=== PATIENT | female | born 1995 | race Caucasian/White ===

== ENCOUNTER 2019-10-10 13:57 | Emergency (ER) | payer OTHER ==
[2019-10-10 14:25] VITALS: TEMP 98; BMI 41.3
[2019-10-10] MEDS ORDERED: ONDANSETRON 4 MG/2 ML VIAL IVPUSH ONE (14:26)
[2019-10-10] MEDS ORDERED: SODIUM CHLORIDE 1,000 ML IV STA (14:26)
--- NOTE | 2019-10-10 14:26 | PDOC ---
Rapid Medical Evaluation Medical Evaluation: I have performed a brief in-person evaluation of this patient. The patient presents with a chief complaint of: epigastric pain, NBNB emesis, watery diarrhea x 6 days; denies fever, recent travel Pertinent physical exam findings: In NAD, abdomen soft/NT I have ordered the following: Labs, IVF, zofran The patient will proceed to the ED for further evaluation. 10/10/19 14:23
[2019-10-10 15:57] LABS: BASO % 0.2 % (0-2.0); EOS % 6.2 % (0-4.5); HEMATOCRIT 44.8 % (32.4-45.2); HEMOGLOBIN 14.3 GM/dL (10.7-15.3); LYMPH % 28.2 % (8-40); MCHC 31.9 g/dl (32.0-36.0); MEAN CELL VOLUME 78.5 fl (80-96); MEAN PLT VOLUME 9.1 fl (7.5-11.1); MONO % 12.7 % (3.8-10.2); NEUT % 52.7 % (42.8-82.8); PLATELET COUNT 423 K/MM3 (134-434); RDW 14.6 % (11.6-15.6); WHITE BLOOD COUNT 10.8 K/mm3 (4.0-10.0)
[2019-10-10 16:15] LABS: ALBUMIN 3.6 g/dl (3.4-5.0); BILIRUBIN,TOTAL 0.2 mg/dL (0.2-1); BLOOD UREA NITROGEN 9.7 mg/dL (7-18); CALCIUM 9.3 mg/dL (8.5-10.1); CREATININE 0.8 mg/dL (0.55-1.3); POTASSIUM 3.6 mmol/L (3.5-5.1); TOT PROT 7.2 g/dl (6.4-8.2)
--- NOTE | 2019-10-10 17:03 | PDOC ---
History of Present Illness - General Chief Complaint: Pain Stated Complaint: ABD PAIN/VOMITING/DIARRHEA Time Seen by Provider: 10/10/19 14:23 - History of Present Illness Initial Comments: Magy Hinojosa is a 24 y/o female with PMH of PCOS presenting with feeling unwell and diarrhea non bloody on Thursday, nausea and vomiting on Thursday, and epigastric abdominal pain radiating to the back starting on Thursday. Reports that the pain is intermittent and describes it as squeezing like in sensation. Never had this before. Reports associated sulfur burps. Denies fever/chills. Denies recent travel. Reports generalized muscle aches. Never had these symptoms before. Denies chest pain/shortness of breath. Denies headache. Denies dysuria/hematuria. SocHx: minimal ETOH use Past History - Past Medical History Allergies/Adverse Reactions: Allergies Allergy/AdvReac Type Severity Reaction Status Date / Time No Known Allergies Allergy Verified 10/10/19 14:25 Home Medications: Ambulatory Orders NK [No Known Home Medication] 10/10/19 COPD: No Other medical history: PCOS - Psycho Social/Smoking Cessation Hx Smoking History: Never smoked Review of Systems - Review of Systems Comments:: GENERAL/CONSTITUTIONAL: No fever or chills. No weakness._ HEAD, EYES, EARS, NOSE AND THROAT: No change in vision. No change in hearing. No sore throat._ CARDIOVASCULAR: No chest pain or shortness of breath_ RESPIRATORY: Denies cough, hemoptysis_ GASTROINTESTINAL: Reports epigastric abdominal pain, diarrhea, nausea, vomiting. GENITOURINARY: No dysuria, frequency, or change in urination._ MUSCULOSKELETAL: Reports diffuse muscle aches. No neck or back pain. SKIN: No rash_ NEUROLOGIC: No headache, vertigo, loss of consciousness, or change in strength/ sensation._ ENDOCRINE: No increased thirst. No abnormal weight change_ HEMATOLOGIC/LYMPHATIC: No anemia, easy bleeding, or history of blood clots._ ALLERGIC/IMMUNOLOGIC: No hives or skin allergy._ *Physical Exam - Vital Signs Last Vital Signs Temp Pulse Resp BP Pulse Ox 98 F 110 H 18 140/91 98 10/10/19 14:22 10/10/19 14:22 10/10/19 14:22 10/10/19 14:22 02/24/20 14:22 - Physical Exam GENERAL: Awake, alert, and oriented to person/place/time, in no acute distress_ HEAD: No signs of trauma, normocephalic, atraumatic _ EYES: PERRLA, EOMI, sclera anicteric, conjunctiva clear_ ENT: Hearing grossly normal, nares patent, oropharynx clear without exudates. No uvular deviation. Moist mucosa_ NECK: Normal ROM, supple, no lymphadenopathy, JVD, or masses_ LUNGS: No distress, speaks in full sentences, clear to auscultation bilaterally _ HEART: Regular rate and rhythm, normal S1 and S2, no murmurs appreciated, peripheral pulses normal and equal bilaterally._ ABDOMEN: Obese, soft, minimal epigastric TTP, normoactive bowel sounds. No guarding, no rebound. No masses_ EXTREMITIES: Normal inspection, Normal range of motion, no edema. No clubbing or cyanosis_ NEUROLOGICAL: Cranial nerves II through XII grossly intact. Normal speech, normal gait, no focal sensorimotor deficits _ SKIN: Warm, Dry, normal turgor, no rashes or lesions noted_ RECTAL: External exam shows 1 external hemorrhoid right lateral, tender. The hemorrhoid is normal skin color. No other hemorrhoids palpated on rectal exam. Strong rectal tone. ED Treatment Course - LABORATORY CBC & Chemistry Diagram: 10/10/19 15:15 10/10/19 15:15 - ADDITIONAL ORDERS Additional order review: Laboratory Results 10/10/19 15:15 Sodium 139 Potassium 3.6 Chloride 104 Carbon Dioxide 27 Anion Gap 8 BUN 9.7 Creatinine 0.8 Est GFR (CKD-EPI)AfAm 121.29 Est GFR (CKD-EPI)NonAf 104.65 Random Glucose 93 Calcium 9.3 Magnesium 2.0 Total Bilirubin 0.2 AST 6 L ALT 21 Alkaline Phosphatase 81 Total Protein 7.2 Albumin 3.6 10/10/19 15:15 RBC 5.70 H MCV 78.5 L MCHC 31.9 L RDW 14.6 MPV 9.1 Neutrophils % 52.7 Lymphocytes % 28.2 Monocytes % 12.7 H Eosinophils % 6.2 H Basophils % 0.2 Medical Decision Making - Medical Decision Making 10/10/19 17:37 24F hx of PCOS presenting with nausea/vomiting, diarrhea, epigastric abdominal pain radiating to the back. -cbc, cmp, lipase -ua, ucx, upreg -fluids, pepcid, maalox 10/10/19 18:41 Labs reviewed. Laboratory Last Values WBC 10.8 K/mm3 (4.0-10.0) H 10/10/19 15:15 RBC 5.70 M/mm3 (3.60-5.2) H 10/10/19 15:15 Hgb 14.3 GM/dL (10.7-15.3) 10/10/19 15:15 Hct 44.8 % (32.4-45.2) 10/10/19 15:15 MCV 78.5 fl (80-96) L 10/10/19 15:15 MCH 25.0 pg (25.7-33.7) L 10/10/19 15:15 MCHC 31.9 g/dl (32.0-36.0) L 10/10/19 15:15 RDW 14.6 % (11.6-15.6) 10/10/19 15:15 Plt Count 423 K/MM3 (134-434) 10/10/19 15:15 MPV 9.1 fl (7.5-11.1) 10/10/19 15:15 Absolute Neuts (auto) 5.7 K/mm3 (1.5-8.0) 10/10/19 15:15 Neutrophils % 52.7 % (42.8-82.8) 10/10/19 15:15 Lymphocytes % 28.2 % (8-40) 10/10/19 15:15 Monocytes % 12.7 % (3.8-10.2) H 10/10/19 15:15 Eosinophils % 6.2 % (0-4.5) H 10/10/19 15:15 Basophils % 0.2 % (0-2.0) 10/10/19 15:15 Nucleated RBC % 0 % (0-0) 10/10/19 15:15 Sodium 139 mmol/L (136-145) 10/10/19 15:15 Potassium 3.6 mmol/L (3.5-5.1) 10/10/19 15:15 Chloride 104 mmol/L (98-107) 10/10/19 15:15 Carbon Dioxide 27 mmol/L (21-32) 10/10/19 15:15 Anion Gap 8 MMOL/L (8-16) 10/10/19 15:15 BUN 9.7 mg/dL (7-18) 10/10/19 15:15 Creatinine 0.8 mg/dL (0.55-1.3) 10/10/19 15:15 Est GFR (CKD-EPI)AfAm 121.29 10/10/19 15:15 Est GFR (CKD-EPI)NonAf 104.65 10/10/19 15:15 Random Glucose 93 mg/dL (74-106) 10/10/19 15:15 Calcium 9.3 mg/dL (8.5-10.1) 10/10/19 15:15 Magnesium 2.0 mg/dL (1.8-2.4) 10/10/19 15:15 Total Bilirubin 0.2 mg/dL (0.2-1) 10/10/19 15:15 AST 6 U/L (15-37) L 10/10/19 15:15 ALT 21 U/L (13-61) 10/10/19 15:15 Alkaline Phosphatase 81 U/L (45-117) 10/10/19 15:15 Total Protein 7.2 g/dl (6.4-8.2) 10/10/19 15:15 Albumin 3.6 g/dl (3.4-5.0) 10/10/19 15:15 Lipase 88 U/L (73-393) 10/10/19 17:00 Serum , Qual Negative 10/10/19 15:13 10/10/19 19:04 Pt reassessed. Reports improvement with meds. Plan to d/c home with PCP f/u and over the counter pepcid. All questions answered. Return precautions given. Pt verbalized understanding and agreement with plan. Discharge - Discharge Information Problems reviewed: Yes Clinical Impression/Diagnosis: Epigastric abdominal pain, External hemorrhoid Nausea and vomiting Qualifiers: Vomiting type: unspecified Condition: Stable Disposition: HOME - Admission No - Follow up/Referral Referrals: Laverne Marinelli MD [Primary Care Provider] - - Patient Discharge Instructions Patient Printed Discharge Instructions: DI for Vomiting -- Adult, DI for Hemorrhoids Additional Instructions: Please take zofran as needed for any nausea and vomiting. Please take Prilosec as needed for your abdominal pain and burping (available over the counter.) Please make a follow up appointment with your primary care doctor. If you experience any new, worsening, or concerning symptoms, including fever, blood in the vomit or stool, worsening abdominal pain, or any other concerns, please return to the emergency department. - Post Discharge Activity
[2019-10-10] MEDS ORDERED: MAG HYDROX/AL HYDROX/SIMETH -MYLANTA- ORAL SUSPENSION PO ONE (17:20)
[2019-10-10] MEDS ORDERED: FAMOTIDINE 20 MG/50 ML IVPB 20 MG/50 ML MG IVPB ONE ×2 (17:20→18:37)
[2019-10-10] MEDS ORDERED: LIDOCAINE VISCOUS 2% ORAL/TOP 20 ML UNIT-DOSE CUP MM ONE (17:21)
[2019-10-10] MEDS ORDERED: MAG HYDROX/AL HYDROX/SIMETH 30 ML UNIT-DOSE CUP ONE (18:36)
[2019-10-10] MEDS ORDERED: LIDOCAINE VISCOUS 2% ORAL/TOP 20 ML UNIT-DOSE CUP ONE (18:36)
[2019-10-10] MEDS ORDERED: ONDANSETRON 4 MG/2 ML VIAL ONE (18:37)
--- NOTE | 2019-10-10 18:43 | PDOC ---
Documentation entered by Hilda Graham SCRIBE, acting as scribe for Peggy Junior MD. Peggy Junior MD: This documentation has been prepared by the scribe, Hilda Graham SCRIBE, under my direction and personally reviewed by me in its entirety. I confirm that the documentation accurately reflects all work, treatment, procedures, and medical decision making performed by me. Attending Attestation - Resident Resident Name: Rodri Leung - ED Attending Attestation I have performed the following: I have examined & evaluated the patient, The case was reviewed & discussed with the resident, I agree w/resident's findings & plan, Exceptions are as noted - HPI HPI: 10/10/19 17:36 The patient is a 24-year-old female with a past medical history significant for PCOS who presents to the emergency department with nausea, vomiting, and abdominal pain. The patient reports on Thursday she had an onset of nausea and vomiting, which progressed into intermittent, squeezing epigastric pain and diarrhea and Thursday. Denies any prior abdominal surgery. - Physicial Exam PE: 10/10/19 18:16 GENERAL: Well-appearing, well-nourished. No apparent distress. HEENT: Normocephalic, atraumatic. PERRL, EOM intact. CARDIOVASCULAR: Regular rate and rhythm. PULMONARY: Clear to auscultation bilaterally. ABDOMEN: +epigastric pain, no rebound or guarding. Protuberant abdomen. EXTREMITIES: Normal ROM in all four extremities. No gross deformities. SKIN: Warm, dry. No rash NEUROLOGICAL: No focal neurological deficits. - Medical Decision Making 10/10/19 18:43 Negative test CBC unremarkable chemistries within normal limits Will reassess her abdominal pain 10/10/19 20:48 Abdominal pain resolved Patient also mentions that she has had some rectal pain and has small hemorrhoid that was addressed Discharge home with PPI,zofran, sitz bath 10/10/19 20:49
[2019-10-10 19:40] VITALS: BP 106/64; PULSE 71
== END 2019-10-10 21:12 | disposition home or self-care (01) ==
LOC: JER 13:57
PROC: 3E033GC Introduction of Other Therapeutic Substance into Peripheral Vein, Percutaneous Approach (ICD-10-PCS; principal; 2019-10-10)
PROC: 3E033GC Introduction of Other Therapeutic Substance into Peripheral Vein, Percutaneous Approach (ICD-10-PCS; 2019-10-10)
DX: R11.2 Nausea with vomiting, unspecified (principal); R19.7 Diarrhea, unspecified; R10.13 Epigastric pain; K64.4 Residual hemorrhoidal skin tags
CPT/HCPCS: 36415; 80053; 83690; 83735; 84703; 85025; 99284-25; J7030

== ENCOUNTER 2021-03-04 10:40 | Inpatient (IN) | payer OTHER ==
[2021-03-04] MEDS ORDERED: ELECTROLYTE-148 SOLN 500 ML IV ONE (11:14)
[2021-03-04] MEDS ORDERED: BETAMET ACET/BETAMET NA PH 30 MG/5 ML VIAL IM ONE (11:15)
[2021-03-04] MEDS ORDERED: AMPICILLIN - 2 GM in SODIUM CHLORIDE 100 ML IVPB ONE (11:17)
[2021-03-04] MEDS ORDERED: AMPICILLIN SODIUM 2 GM VIAL ONE (13:08)
[2021-03-04] MEDS ORDERED: BETAMET ACET/BETAMET NA PH 30 MG/5 ML VIAL ONE (13:08)
[2021-03-04] MEDS: ELECTROLYTE-148 SOLN 1,000 ML IV SCH (14:00)
[2021-03-04 14:36] LABS: URINE APPEARANCE CLEAR; URINE BILIRUBIN NEGATIVE (NEGATIVE); URINE COLOR YELLOW; URINE GLUCOSE (UA) NEGATIVE (NEGATIVE); URINE KETONE 2+ (NEGATIVE); URINE LEUK ESTERASE NEGATIVE (NEGATIVE); URINE NITRITE NEGATIVE (NEGATIVE); URINE PROTEIN TRACE (NEGATIVE)
[2021-03-04 14:48] LABS: EPI CELLS 30 /uL (0-25.1); HYALINE CASTS 2 /uL (0-3.1); URINE BACTERIA 74 /uL (0-1359); URINE RBC 10 /uL (0-23.9); URINE WBC 5 /uL (0-25.8)
[2021-03-04] MEDS ORDERED: BUTORPHANOL TARTRATE 1 MG/ML VIAL IVPB PRN (15:32)
[2021-03-04] MEDS ORDERED: CITRIC ACID/SODIUM CITRATE 30 ML UNIT-DOSE CUP PO ONE (15:32)
[2021-03-04 16:07] LABS: POC NITRAZINE NEG
[2021-03-04 17:04] LABS: BASO % 0.4 % (0-2.0); EOS % 1.1 % (0-4.5); HEMATOCRIT 36.2 % (32.4-45.2); HEMOGLOBIN 11.6 GM/dL (10.7-15.3); LYMPH % 12.6 % (8-40); MCH 23.7 pg (25.7-33.7); MEAN CELL VOLUME 74.1 fl (80-96); MEAN PLT VOLUME 9.1 fl (7.5-11.1); MONO % 4.4 % (3.8-10.2); NEUT % 81.5 % (42.8-82.8); PLATELET COUNT 353 10^3/uL (134-434); RBC 4.89 M/mm3 (3.60-5.2); RDW 15.5 % (11.6-15.6)
[2021-03-04 17:09] LABS: INR 0.98 (0.83-1.09); PROTHROMBIN TIME (PATIENT) 11.9 SEC (9.7-13.0)
[2021-03-04 17:12] LABS: ACTIVATED PTT 26.1 SECONDS (25.2-36.5)
[2021-03-04 17:24] LABS: BLOOD UREA NITROGEN 4.6 mg/dL (7-18); CALCIUM 9.1 mg/dL (8.5-10.1)
[2021-03-04 17:28] LABS: CREATININE 0.6 mg/dL (0.55-1.3)
[2021-03-04 17:46] VITALS: BMI 45.7
[2021-03-04] MEDS: AMPICILLIN - 1 GM in SODIUM CHLORIDE 100 ML IVPB SCH ×2 (18:05→22:00)
[2021-03-04] MEDS ORDERED: AMPICILLIN SODIUM 1 GM VIAL ONE ×2 (18:07→22:07)
[2021-03-04] MEDS ORDERED: OXYTOCIN 30 UNITS in 0.9% NS 30 UNIT/500 ML INFUS.BAG IVPB SCH (18:45)
[2021-03-04] MEDS ORDERED: OXYTOCIN 30 UNITS in 0.9% NS 30 UNIT/500 ML INFUS.BAG IVPB ONE (19:35)
[2021-03-04 21:39] LABS: HIV INTERPRETATION NEGATIVE (NEGATIVE)
[2021-03-05] MEDS ORDERED: BETAMET ACET/BETAMET NA PH 30 MG/5 ML VIAL IM ONE (01:00)
[2021-03-05] MEDS ORDERED: AMPICILLIN SODIUM 1 GM VIAL ONE ×5 (01:38→17:33)
[2021-03-05] MEDS: AMPICILLIN - 1 GM in SODIUM CHLORIDE 100 ML IVPB SCH ×5 (02:00→17:55)
[2021-03-05] MEDS ORDERED: BUTORPHANOL TARTRATE 2 MG/ML VIAL ONE (03:46)
[2021-03-05] MEDS: ELECTROLYTE-148 SOLN 1,000 ML IV SCH ×3 (05:00→16:13)
[2021-03-05] MEDS ORDERED: SODIUM CHLORIDE 100 ML IVPB ONE ×3 (09:42→17:33)
[2021-03-05] MEDS ORDERED: FENTANYL/BUPIVACAINE/NS/PF - PCEA - 50 ML DISP.SYRIN EP ONE ×2 (14:32→19:45)
[2021-03-05] MEDS: FENTANYL/BUPIVACAINE/NS/PF - PCEA - 50 ML DISP.SYRIN EP SCH ×2 (15:30→19:45)
[2021-03-05] MEDS ORDERED: NALOXONE HCL 0.4 MG/ML VIAL IVPUSH PRN ×2 (15:59→16:00)
[2021-03-05] MEDS ORDERED: FENTANYL/BUPIVACAINE/NS/PF - PCEA - 50 ML DISP.SYRIN EP SCH (16:00)
[2021-03-05] MEDS ORDERED: PCA PUMP NR ONE (19:45)
[2021-03-05] MEDS ORDERED: LIDOCAINE HCL/EPINEPHRINE/PF 10 ML VIAL ONE (21:57)
[2021-03-05] MEDS ORDERED: PROPOFOL 20 ML ONE (22:07)
[2021-03-05] MEDS ORDERED: morphine SULFATE/PF 0.5 MG/ML (2cc Syringe - QUVA) ONE ×2 (22:25)
[2021-03-05] MEDS ORDERED: WITCH HAZEL 50% (TUCKS) 40 PAD/JAR PAD TP PRN (23:17)
[2021-03-05] MEDS ORDERED: IBUPROFEN 800 MG/8 ML IJ IVPB PRN (23:17)
[2021-03-05] MEDS ORDERED: BENZOCAINE 28 GM HEMORRHOIDAL OINTMENT TP PRN (23:17)
[2021-03-05] MEDS ORDERED: METHYLERGONOVINE MALEATE 0.2 MG/1 ML AMP IM PRN (23:17)
[2021-03-05] MEDS ORDERED: SENNOSIDES/DOCUSATE COMBO (SENNA PLUS) TABLET (UD) PO PRN (23:17)
[2021-03-05] MEDS ORDERED: BENZOCAINE 20% 57 GM BOTTLE TP PRN (23:17)
[2021-03-05] MEDS ORDERED: OXYTOCIN 20 UNITS in 0.9% NS 20 UNIT/1,000 ML INFUS.BAG IV SCH (23:30)
[2021-03-06] MEDS ORDERED: OXYTOCIN 20 UNITS in 0.9% NS 20 UNIT/1,000 ML INFUS.BAG IV ONE (00:26)
[2021-03-06 00:43] LABS: CORD BASE EXCESS -6.6 mmol/L (0-2); CORD HCO3 18.9 mmHg (20-29); CORD pH 7.315 (7.14-7.44)
[2021-03-06 00:44] LABS: CORD BASE EXCESS -7.6 mmol/L (0-2); CORD HCO3 18.7 mmHg (20-29); CORD PCO2 40.9 mmHg (30-78); CORD pH 7.278 (7.14-7.44)
[2021-03-06] MEDS: FERROUS SO4 325 MG TABLET (FP) PO SCH ×2 (09:43→21:54)
[2021-03-06] MEDS: PRENATAL VITAMINS W/ FOLIC ACID TABLET (FP) PO SCH (09:44)
[2021-03-06 09:59] LABS: BASO % 0.1 % (0-2.0); EOS % 0.1 % (0-4.5); MCH 23.4 pg (25.7-33.7); MCHC 31.1 g/dl (32.0-36.0); MEAN CELL VOLUME 75.1 fl (80-96); MEAN PLT VOLUME 9.2 fl (7.5-11.1); MONO % 12.1 % (3.8-10.2); NEUT % 70.7 % (42.8-82.8); PLATELET COUNT 299 10^3/uL (134-434); RBC 3.86 M/mm3 (3.60-5.2); RDW 15.6 % (11.6-15.6); WHITE BLOOD COUNT 14.2 K/mm3 (4.0-10.0)
[2021-03-06] MEDS ORDERED: oxyCODONE HCL 5 MG TABLET PO PRN ×2 (10:00)
[2021-03-06] MEDS: IBUPROFEN 600 MG TABLET (FP) PO PRN ×2 (14:51→21:53)
[2021-03-06] MEDS: ACETAMINOPHEN 325 MG TABLET (FP) PO PRN ×2 (14:53→21:54)
[2021-03-06] MEDS ORDERED: BISACODYL 10 MG SUPP.RECT RC PRN (23:17)
[2021-03-07] MEDS: IBUPROFEN 600 MG TABLET (FP) PO PRN ×2 (06:26→16:45)
[2021-03-07] MEDS: ACETAMINOPHEN 325 MG TABLET (FP) PO PRN ×2 (06:27→16:45)
[2021-03-07] MEDS ORDERED: DIPHTH,PERTUSS(ACELL),TET 0.5 ML DISP.SYRIN IM ONE (10:00)
[2021-03-07] MEDS: PRENATAL VITAMINS W/ FOLIC ACID TABLET (FP) PO SCH (10:45)
[2021-03-07] MEDS: FERROUS SO4 325 MG TABLET (FP) PO SCH ×2 (10:46→22:12)
[2021-03-08] MEDS: IBUPROFEN 600 MG TABLET (FP) PO PRN ×2 (06:47→16:46)
[2021-03-08] MEDS: ACETAMINOPHEN 325 MG TABLET (FP) PO PRN ×2 (06:47→23:37)
[2021-03-08] MEDS: SIMETHICONE 80 MG TAB.CHEW (FP) PO PRN (06:47)
[2021-03-08 08:53] LABS: BASO % 0.5 % (0-2.0); HEMOGLOBIN 8.7 GM/dL (10.7-15.3); MCHC 32.2 g/dl (32.0-36.0); MEAN CELL VOLUME 74.8 fl (80-96); MEAN PLT VOLUME 8.5 fl (7.5-11.1); MONO % 10.4 % (3.8-10.2); NEUT % 56.1 % (42.8-82.8); PLATELET COUNT 322 10^3/uL (134-434); RBC 3.62 M/mm3 (3.60-5.2); RDW 16.1 % (11.6-15.6); WHITE BLOOD COUNT 12.9 K/mm3 (4.0-10.0)
[2021-03-08] MEDS: PRENATAL VITAMINS W/ FOLIC ACID TABLET (FP) PO SCH (10:20)
[2021-03-08] MEDS: FERROUS SO4 325 MG TABLET (FP) PO SCH ×2 (10:20→20:59)
[2021-03-09] MEDS: FERROUS SO4 325 MG TABLET (FP) PO SCH (10:02)
[2021-03-09] MEDS: SIMETHICONE 80 MG TAB.CHEW (FP) PO PRN (10:02)
[2021-03-09] MEDS: PRENATAL VITAMINS W/ FOLIC ACID TABLET (FP) PO SCH (10:02)
[2021-03-09] MEDS: IBUPROFEN 600 MG TABLET (FP) PO PRN (10:04)
[2021-03-09 11:13] VITALS: BP 108/75; PULSE 93; TEMP 98.1
[2021-03-09] MEDS: ELECTROLYTE-148 SOLN 1,000 ML IV SCH (11:29)
== END 2021-03-09 16:40 | disposition home or self-care (01) | DRG 787 ==
LOC: JDEL 10:40 → JLDR 15:15 → J3W 03-06 01:41
PROVIDERS: ADMIT Obstetrics & Gynecology; ATTEND Obstetrics & Gynecology
PROC: 10D00Z1 Extraction of Products of Conception, Low, Open Approach (ICD-10-PCS; principal; 2021-03-05)
DX: O42.013 Preterm premature rupture of membranes, onset of labor within 24 hours of rupture, third trimester (principal); O47.03 False labor before 37 completed weeks of gestation, third trimester; O62.9 Abnormality of forces of labor, unspecified; O99.214 Obesity complicating childbirth; E66.01 Morbid (severe) obesity due to excess calories; Z3A.34 34 weeks gestation of pregnancy; Z37.0 Single live birth
CPT/HCPCS: 36415; 36600; 80048; 81003; 82803; 83986-QW; 85025; 85610; 85730; 86780; 86803; 86850; 86870; 86900; 86901; 86902; 87086; 87389; 88307-TC; 90715; 96372; C9803; U0003; U0005

== ENCOUNTER 2021-05-23 17:43 | Emergency (ER) | payer OTHER ==
[2021-05-23 18:08] VITALS: BP 93/70; PULSE 84; TEMP 98.2; BMI 43.0
== END 2021-05-23 20:05 | disposition home or self-care (01) ==
LOC: JERFT 17:43 → JER 17:43 → JERFT 20:05
DX: T81.31XA Disruption of external operation (surgical) wound, not elsewhere classified, initial encounter (principal)
CPT/HCPCS: 87070; 87076; 87186; 87205; 99283-25

== ENCOUNTER 2021-06-24 04:37 | Day surgery (SDC) | payer OTHER ==
[2021-06-21 09:10] VITALS: BMI 42.7
[2021-06-24] MEDS ORDERED: BUPIVACAINE HCL/PF 0.5% (5MG/ML) 10 ML VIAL ONE (06:33)
[2021-06-24] MEDS ORDERED: LIDOCAINE HCL 1%, 10 MG/ML (20ML VIAL) ONE (06:33)
[2021-06-24] MEDS ORDERED: LIDOCAINE 1%/EPI 1:100000 (20 ML MULTI DOSE VIAL) ONE (06:48)
[2021-06-24] MEDS ORDERED: MIDAZOLAM HCL 2 MG/2 ML SINGLE DOSE VIAL ONE (07:21)
[2021-06-24] MEDS ORDERED: PROPOFOL 20 ML ONE (07:21)
[2021-06-24] MEDS ORDERED: GLYCOPYRROLATE 0.2 MG/1 ML VIAL ONE (07:22)
[2021-06-24] MEDS ORDERED: LIDOCAINE HCL/PF 2% SDV 5ML VIAL ONE (07:24)
[2021-06-24] MEDS ORDERED: SODIUM CHLORIDE 0.9% P/F 10 ML VIAL IJ ONE (07:53)
[2021-06-24] MEDS ORDERED: ceFAZolin SODIUM 1 GM VIAL ONE (07:53)
[2021-06-24] MEDS ORDERED: ceFAZolin 2 GRAM PREMIX BAG IVPB ONE (07:56)
[2021-06-24] MEDS ORDERED: ACETAMINOPHEN 325 MG TABLET (FP) PO PRN (07:57)
[2021-06-24] MEDS ORDERED: IBUPROFEN 400 MG TABLET (FP) PO PRN (07:57)
[2021-06-24] MEDS ORDERED: KETOROLAC TROMETHAMINE 30 MG/1 ML VIAL ONE (07:58)
[2021-06-24] MEDS ORDERED: DEXAMETHASONE SOD PHOSPHATE 4 MG/1 ML VIAL ONE (07:58)
[2021-06-24] MEDS ORDERED: oxyCODONE HCL 5 MG TABLET PO PRN (08:31)
[2021-06-24] MEDS ORDERED: ONDANSETRON 4 MG/2 ML VIAL IVPUSH PRN (08:31)
[2021-06-24] MEDS ORDERED: PROMETHAZINE HCL 25 MG/1 ML VIAL IVPUSH PRN (08:31)
[2021-06-24] MEDS ORDERED: LACTATED RINGERS SOLUTION 1,000 ML IV SCH (08:45)
[2021-06-24 11:35] VITALS: BP 116/61; PULSE 64; TEMP 96.8
== END 2021-06-24 11:35 | disposition home or self-care (01) ==
LOC: JASU-SURG 04:37
PROVIDERS: ATTEND Obstetrics & Gynecology
PROC: 10D17ZZ Extraction of Products of Conception, Retained, Via Natural or Artificial Opening (ICD-10-PCS; principal; 2021-06-24 07:30)
DX: O03.4 Incomplete spontaneous abortion without complication (principal)
CPT/HCPCS: 88305-TC; 94760